=== PATIENT | female | born 1965 | race African-American/Black ===

== ENCOUNTER 2017-05-30 13:28 | Emergency (ER) | payer MEDICAID ==
[~2017-05-30] VITALS: Ht 170.2 cm; Wt 87.1 kg
[~2017-05-30 13:28] MED LIST: NAPROSYN500 M1 ORAL; NORCO 5-325 TA1 EACH ORAL
[2017-05-30] MEDS ORDERED: NKM (13:40)
--- NOTE | 2017-05-30 14:00 | Emergency Room Report ---
History of Present Illness General Chief Complaint: Pain Source: Patient Present Illness HPI 52-year-old female presents with 1-2 days of pain to posterior left foot She denies any recent trauma, ankle twist Denies history of gout or arthritis Patient states that she walks a lot Took one [place] and one Motrin a few days ago with some improvement Denies pain to [place]edo lower leg knee with ambulation Denies any fevers chills or bites to area Allergies: Coded Allergies: No Known Allergies (Unverified , 03/10/16) Patient History Past Medical History: none Past Surgical History: none Pertinent Family History: none Social History: Denies: smoking, alcohol use, drug use Now: No Immunizations: UTD Reviewed Nursing Documentation: PMH: Agreed, PSxH: Agreed Nursing Documentation-PMH Past Medical History: No Stated History Review of Systems All Other Systems: negative except mentioned in HPI Physical Exam Vital Signs Date Time Temp Pulse Resp B/P (MAP) Pulse Ox O2 Delivery O2 Flow Rate FiO2 05/30/17 13:38 98.1 84 18 112/76 95 Room Air 98.1 Sp02 EP Interpretation: reviewed, normal General Appearance: normal inspection, well appearing, no apparent distress, alert, GCS 15, non-toxic Head: normocephalic, atraumatic Eyes: bilateral eye PERRL, bilateral eye EOMI ENT: normal ENT inspection, hearing grossly normal, normal pharynx, no angioedema, normal voice, TMs + canals normal, uvula midline, moist mucus membranes Neck: normal inspection, full range of motion, supple, thyroid normal, no meningismus, no bony tend Respiratory: normal inspection, lungs clear, normal breath sounds, no rhonchi, no respiratory distress, no retraction, no accessory muscle use, no wheezing, speaking full sentences Cardiovascular #1: regular rate, rhythm, no edema, no JVD, normal capillary refill Gastrointestinal: normal inspection, normal bowel sounds, non tender, soft, no mass, no peritonitis, non-distended, no guarding, no hernia, no pulsatile mass Genitourinary: no CVA tenderness Musculoskeletal: normal inspection, back normal, normal range of motion, no calf tenderness, pelvis stable, Negra's Sign negative, other - Left foot/ankle: mild ttp to base of achilles tendon insertion into heel. However negative Esc[place]illa test. Some mild palpable inflammation/minimal effusion. No erythema or sign of infection. Neurologic: normal inspection, alert, oriented x3, responsive, animal care taker III-XII nml as tested, motor strength/tone normal, cerebellar normal, normal gait, speech normal Psychiatric: normal inspection, judgement/insight normal, mood/affect normal, no suicidal/homicidal ideation, no delusions Skin: normal inspection, normal color, no rash Lymphatic: normal inspection, no adenopathy Medical Decision Making Diagnostic Impression: Primary Impression: Foot pain, left ER Course VSS, afebrile Atraumatic No sign of infection Possibly inflammation Doubt gout, septic joint Gave IM toradol with improvement and MUKESH wrap Advised ISAC motrin PMD followup ER course: Patient has remained stable during ED stay. Disposition: Patient is to be discharged to home. Prescriptions given are motrin Patient is instructed to follow up with their primary care doctor within 5 days. Strict return precautions discussed with patient such as fever, chills, worsening/severe pain, nausea, vomiting, which may indicate severe illness. Patient verbalizes understanding and agrees with plan. Please note that this Emergency Department Report was dictated using [employer] software, occasionally this can lead to erroneous entry secondary to interpretation by the dictation equipment Last Vital Signs Date Time Temp Pulse Resp B/P (MAP) Pulse Ox O2 Delivery O2 Flow Rate FiO2 05/30/17 13:38 98.1 84 18 112/76 95 Room Air 98.1 Status: improved Disposition: HOME, SELF-CARE VELIA MEYER M.D. May 30, 2017 13:59
[2017-05-30 14:01] VITALS: BP 115/70
[2017-05-30] MEDS ORDERED: IBUPROFEN600 MG ORAL (14:03)
[2017-05-30] MEDS: Ketorolac 60mg Inj IM ONE (14:04)
[2017-05-30 14:15] VITALS: BP 115/70
== END 2017-05-30 14:15 | disposition home or self-care (01) ==
LOC: EMR 13:54
DX: M79.672 Pain in left foot (principal)
CPT/HCPCS: 96372; 99283